=== PATIENT | female | born 1960 | race Asian ===

== ENCOUNTER → 2016-10-25 | Outpatient (CLI) | payer BC ==
--- NOTE | 2016-10-27 08:50 | MM ---
Reason for exam: screening (asymptomatic). Last mammogram was performed 1 year and 9 months ago. Physical Findings: A clinical breast exam by your physician is recommended on an annual basis and results should be correlated with mammographic findings. MG Screening Mammo w CAD Bilateral CC and MLO view(s) were taken. Prior study comparison: January 28, 2015, bilateral MG screening mammo w CAD. January 27, 2014, bilateral MG screening mammo w CAD. There are scattered fibroglandular densities. No significant changes when compared with prior studies. ASSESSMENT: Negative, BI-RAD 1 RECOMMENDATION: Routine screening mammogram of both breasts in 1 year.
== END ==
LOC: RADMAMWWP 16:36
PROVIDERS: ATTEND Internal Medicine
DX: Z12.31 Encounter for screening mammogram for malignant neoplasm of breast (principal)

== ENCOUNTER → 2018-04-04 | Outpatient (CLI) | payer BC ==
--- NOTE | 2018-04-05 12:00 | MM ---
Reason for exam: screening (asymptomatic). Last mammogram was performed 1 year and 5 months ago. History: Patient is postmenopausal. Physical Findings: A clinical breast exam by your physician is recommended on an annual basis and results should be correlated with mammographic findings. MG Screening Mammo w CAD Bilateral CC and MLO view(s) were taken. Prior study comparison: October 25, 2016, bilateral MG screening mammo w CAD. January 28, 2015, bilateral MG screening mammo w CAD. The breast tissue is heterogeneously dense. This may lower the sensitivity of mammography. There is no discrete abnormality. No significant changes when compared with prior studies. ASSESSMENT: Negative, BI-RAD 1 RECOMMENDATION: Routine screening mammogram of both breasts in 1 year.
== END | disposition home or self-care (01) ==
LOC: RADMAMWWP 09:15
PROVIDERS: ATTEND Internal Medicine
DX: Z12.31 Encounter for screening mammogram for malignant neoplasm of breast (principal)
CPT/HCPCS: 77067

== ENCOUNTER → 2018-06-13 | Outpatient (CLI) | payer BC ==
--- NOTE | 2018-06-13 15:51 | US ---
EXAMINATION TYPE: US thyroid st tissue head/neck DATE OF EXAM: 06/13/2018 COMPARISON: NONE CLINICAL HISTORY: R22.0 Localized swelling, mass and lump, head. Swelling, mass/palpable abnormality. Pt felt lump 2 weeks ago. GLAND SIZE: Right Lobe: 5.3 x 1.4 x 1.7 cm Overall Parenchyma: heterogenous Left Lobe: 6.6 x 2.5 x 3.2 cm Overall Parenchyma: heterogeneous Isthmus Thickness: 0.32 cm NODULES RIGHT: # of nodules measured on right: 2 1. 0.6 X 0.5 x 0.4 cm hypoechoic mixed nodule at the mid pole with well-defined margins. This nodu le is wider than tall and shows no intranodular vascularity. Prior size: no prior 2. 0.8 X 0.7 x 0.5 cm hypoechoic solid nodule at the lower pole with poorly defined margins. This n odule is wider than tall and shows intranodular vascularity. Prior size: no prior LEFT: # of nodules measured on left: 2 1. 4.2 X 3.7 x 3.2 cm hypoechoic cystic nodule with debris at the mid pole with well-defined margin s. This nodule is wider than tall and shows no intranodular vascularity. Prior size: no prior 2. 1.0 X 1.2 x 1.0 cm hypoechoic mixed nodule at the upper pole with well-defined margins. This nod ule is wider than tall and shows intranodular vascularity. Prior size: no prior ISTHMUS: # of nodules measured in the isthmus: 0 IMPRESSION: There is evidence of thyroidomegaly with the multiple bilateral nonspecific nodules as discussed abov e. Correlate clinically with thyroid function testing. The need to biopsy should be made on a clinica l basis.
== END | disposition home or self-care (01) ==
LOC: RADUSWWP 15:07
PROVIDERS: ATTEND Internal Medicine
DX: E04.2 Nontoxic multinodular goiter (principal)
CPT/HCPCS: 76536

== ENCOUNTER 2018-08-23 08:50 | Day surgery (SDC) | payer BC ==
[2018-08-23 09:14] VITALS: RESP 14; TEMP 97.5
[2018-08-23 10:58] VITALS: BP 136/88; PULSE 72
--- NOTE | 2018-08-23 11:51 | US ---
ULTRASOUND GUIDED FNA THYROID BIOPSY: CLINICAL HISTORY: Request for 2 thyroid nodules for FNA FINDINGS: The procedure was explained to the patient. The risks, complications, benefits and alternatives were discussed and any questions were answered. Informed consent was obtained. Patient was placed supin e on the ultrasound table and prepped and draped in the usual sterile fashion. Utilizing a 25 gauge needle, five passes were made into the requested thyroid nodules. Patient was stable throughout the procedure. Pathology is pending. All elements of maximal barrier technique were utilized. IMPRESSION: 1. Successful ultrasound guided FNA thyroid biopsy. Note is made that the nodules appear to be predo minantly fluid with very little soft tissue component. This will likely lower diagnostic yield.
== END 2018-08-23 10:48 | disposition home or self-care (01) ==
LOC: RADPROMAIN 08:50
PROVIDERS: ATTEND Otolaryngology
DX: E04.1 Nontoxic single thyroid nodule (principal)
CPT/HCPCS: 10005; 10006; 88173; 88305

== ENCOUNTER → 2019-02-27 | Outpatient (CLI) | payer BC ==
--- NOTE | 2019-02-28 07:28 | US ---
EXAMINATION TYPE: US thyroid st tissue head/neck DATE OF EXAM: 02/27/2019 COMPARISON: US 08/23/2018 and 06/13/2018 CLINICAL HISTORY: E04.1 thyroid nodule. F/U nodules GLAND SIZE: Right Lobe: 4.4 x 1.2 x 1.7 cm Overall Parenchyma: heterogenous Left Lobe: 5.3 x 2.0 x 2.3 cm Overall Parenchyma: heterogeneous Isthmus Thickness: 0.3 cm NODULES RIGHT: # of nodules measured on right: 2 1. 0.6 X 0.5 x 0.4 cm hypoechoic mixed nodule at the mid pole with well-defined margins; This nodu le is wider than tall and shows no intranodular vascularity. Prior size: 0.6 x 0.5 x 0.4 cm 2. 0.6 X 0.5 x 0.5 cm isoechoic solid nodule at the lower pole with poorly defined margins; This no dule is wider than tall and shows intranodular vascularity. Prior size: 0.8 x 0.7 x 0.5 cm LEFT: # of nodules measured on left: 3 1. 2.8 X 1.9 x 2.3 cm hypoechoic mixed nodule at the mid pole with well-defined margins; This nodu le is wider than tall and shows intranodular vascularity. Prior size: 4.2 x 3.7 x 3.2 cm 2. 0.9 X 0.5 x 0.8 cm hypoechoic mixed nodule at the upper pole with poorly defined margins; This n odule is wider than tall and shows intranodular vascularity. Prior size: 1.0 x 1.2 x 1.0 cm 3. 1.3 X 0.9 x 1.1 cm hypoechoic cystic nodule at the upper pole with well-defined margins; This no dule is wider than tall and shows no intranodular vascularity. Prior size: Not visualized on prior Bilateral neck scanned, no evidence of lymphadenopathy. Stable nodules bilaterally with new cystic no dule upper pole on left. IMPRESSION: 1. Bilateral thyroid nodules demonstrate no significant interval growth. The largest most complex nod ule on the left has decreased in size from the prior. This was previously biopsied on 08/23/2018. 2. Solitary new left thyroid nodule measuring 1.3 cm appears largely cystic, likely benign.
== END | disposition home or self-care (01) ==
LOC: RADUSWWP 16:19
PROVIDERS: ATTEND Otolaryngology
DX: E04.2 Nontoxic multinodular goiter (principal)
CPT/HCPCS: 76536

== ENCOUNTER → 2019-09-12 | Outpatient (CLI) | payer BC ==
--- NOTE | 2019-09-13 07:02 | US ---
EXAMINATION TYPE: US thyroid st tissue head/neck DATE OF EXAM: 09/12/2019 COMPARISON: 02/27/2019 CLINICAL HISTORY: E04.1 thyroid nodule. thyroid nodule GLAND SIZE: Right Lobe: 5.5 x 1.6 x 1.5 cm Overall Parenchyma: homogenous Left Lobe: 5.7 x 1.7 x 1.6 cm Overall Parenchyma: homogeneous Isthmus Thickness: cm NODULES RIGHT: # of nodules measured on right: 2 1. .7 X .4 x .5 cm mixed nodule at the mid pole with margins; . This nodule is wider than tall and shows no intranodular vascularity. Prior size: .6 x .5 x .4 cm 2. 1.0 x .4 x .7 cm hypoechoic solid nodule at the lower pole with well-defined margins; . This nodu le is wider than tall and shows intranodular vascularity. Prior size: .6 x .5 x .5cm LEFT: # of nodules measured on left: 1. 1.3 x 1.2 x 1.1cm cystic nodule at the lower pole with well-defined margins; . This nodule is wi felton than tall and shows no intranodular vascularity. Prior size: No previous 2. 1.1 x 1.6 x 1.0 cm cystic nodule at the upper pole with well-defined margins; . This nodule is w ider than tall and shows no intranodular vascularity. Prior size: .9 x .5 x .8 cm 3. .7 X .5 x .6 cm mixed nodule at the mid pole with margins; . This nodule is wider than tall and shows no intranodular vascularity. Prior size: .9 x .5 x .8 cm ISTHMUS: # of nodules measured in the isthmus: 0 Bilateral neck scanned, no evidence of lymphadenopathy. IMPRESSION: 1. Glandular enlargement. 2. Nonspecific thyroid nodularity as noted above.
== END | disposition home or self-care (01) ==
LOC: RADUSWWP 16:12
PROVIDERS: ATTEND Otolaryngology
DX: E04.9 Nontoxic goiter, unspecified (principal)
CPT/HCPCS: 76536

== ENCOUNTER → 2020-04-09 | Outpatient (CLI) | payer OTHER ==
--- NOTE | 2020-04-10 07:58 | US ---
EXAMINATION TYPE: US thyroid st tissue head/neck DATE OF EXAM: 04/09/2020 COMPARISON: US 2019 CLINICAL HISTORY: E04.1 THYROID NODULE. GLAND SIZE: Right Lobe: 5.0 x 1.4 x 1.3 cm Overall Parenchyma: homogenous Left Lobe: 4.9 x 1.3 x 1.6 cm Overall Parenchyma: homogeneous Isthmus Thickness: 0.2 cm NODULES RIGHT: # of nodules measured on right: multiple subcentimeter nodules with largest described below 1. 0.6 X 0.4 x 0.5 cm mid pole cystic or almost completely cystic, hypoechoic nodule, which is wide r than tall, with smooth margins, without echogenic foci. Prior size: 0.7 x 0.4 x 0.5 cm LEFT: # of nodules measured on left: 3 1. 1.6 X 1.0 x 1.3 cm mid pole cystic or almost completely cystic, hypoechoic nodule, which is wide r than tall, with smooth margins, without echogenic foci. Prior size: 1.3 x 1.2 x 1.1 cm 2. 1.2 X 1.0 x 0.9 cm inferior pole mixed cystic and solid, hypoechoic nodule, which is taller than wide, with smooth margins, without echogenic foci. Prior size: 1.1 x 1.6 x 1.0 cm 3. 1.1 X 0.6 x 0.9 cm medial superior pole solid or almost completely solid, isoechoic nodule, whic h is wider than tall, with ill-defined margins, without echogenic foci. Prior size: 0.7 x 0.5 x 0.6 cm ISTHMUS: # of nodules measured in the isthmus: 0 Bilateral neck scanned, no evidence of lymphadenopathy. IMPRESSION: 1. Moderate suspicion inferior pole left lobe thyroid nodule. Follow-up exam in one year is recommend ed. 2017 ACR TI-RADS LEVEL: TR-RADS 4 - Moderately Suspicious: Follow if > 1 cm, FNA if > 1.5 cm *Highest TI-RADS level nodule reported
== END | disposition home or self-care (01) ==
LOC: RADUSWWP 16:36
PROVIDERS: ATTEND Otolaryngology
DX: E04.1 Nontoxic single thyroid nodule (principal)
CPT/HCPCS: 76536

== ENCOUNTER → 2020-04-09 | Outpatient (CLI) | payer OTHER ==
--- NOTE | 2020-04-13 09:51 | MM ---
Reason for exam: screening (asymptomatic). Last mammogram was performed 2 years ago. History: Patient is postmenopausal. Physical Findings: A clinical breast exam by your physician is recommended on an annual basis and results should be correlated with mammographic findings. MG Screening Mammo w CAD Bilateral CC, MLO, and XCCL view(s) were taken. Prior study comparison: April 04, 2018, bilateral MG screening mammo w CAD. October 25, 2016, bilateral MG screening mammo w CAD. No significant changes when compared with prior studies. ASSESSMENT: Benign, BI-RAD 2 RECOMMENDATION: Routine screening mammogram of both breasts in 1 year.
== END | disposition home or self-care (01) ==
LOC: RADMAMWWP 16:32
PROVIDERS: ATTEND Internal Medicine
DX: Z12.31 Encounter for screening mammogram for malignant neoplasm of breast (principal)
CPT/HCPCS: 77067

== ENCOUNTER → 2020-08-13 | Outpatient (CLI) | payer OTHER ==
[2020-08-13 08:06] LABS: HCT 39.6 % (34.0-46.0); HGB 12.5 gm/dL (11.4-16.0); Hypochromasia Slight; MCH 21.1 pg (25.0-35.0); MCHC 31.7 g/dL (31.0-37.0); MCV 66.8 fL (80.0-100.0); Mean Platelet Volume 6.7; Microcytosis Marked; Platelet Count 191 k/uL (150-450); RBC 5.92 m/uL (3.80-5.40); RDW 14.9 % (11.5-15.5); WBC 7.1 k/uL (3.8-10.6)
[2020-08-13 08:19] LABS: Partial Thromboplastin Time 24.8 sec (22.0-30.0); Prothrombin Time 10.3 sec (9.0-12.0)
[2020-08-13 08:22] LABS: ALT 20 U/L (4-34); AST 26 U/L (14-36); African American GFR (CKD) >90 (>60 ml/min/1.73 sqM); Albumin 4.6 g/dL (3.5-5.0); Alkaline Phosphatase 103 U/L (38-126); Anion Gap 8 mmol/L; Blood Urea Nitrogen 11 mg/dL (7-17); Calcium 10.1 mg/dL (8.4-10.2); Carbon Dioxide 31 mmol/L (22-30); Chloride 105 mmol/L (98-107); Glucose 103 mg/dL (74-99); Non-African American GFR(CKD) >90 (>60 ml/min/1.73 sqM); Potassium 3.8 mmol/L (3.5-5.1); Sodium 144 mmol/L (137-145); Total Bilirubin 0.5 mg/dL (0.2-1.3); Total Protein 8.1 g/dL (6.3-8.2)
[2020-08-13 08:34] LABS: Appearance,Urine Clear (Clear); Bilirubin,Urine Negative (Negative); Blood,Urine Negative (Negative); Color,Urine Light Yellow; Glucose,Urine (UA) Negative (Negative); Ketones,Urine Negative (Negative); Leukocyte Esterase,Urine Negative (Negative); Nitrite,Urine Negative (Negative); Protein,Urine Negative (Negative); Specific Gravity,Urine 1.003 (1.001-1.035); Urobilinogen,Urine <2.0 mg/dL (<2.0)
== END | disposition home or self-care (01) ==
LOC: LABPAT 07:05
PROVIDERS: ATTEND Orthopaedic Surgery Sports Medicine
DX: Z01.812 Encounter for preprocedural laboratory examination (principal)
CPT/HCPCS: 36415; 80053; 81003; 85027; 85610; 85730; 87070; 93005

== ENCOUNTER 2020-09-03 07:44 | Day surgery (SDC) | payer OTHER ==
[2020-09-01 08:41] VITALS: BMI 30.2
[~2020-09-03 07:44] MED LIST: ACETAMINOPHEN TAB 500 MG TAB PO PRN; DEXAMETHASONE SOD PHOSPHATE 4 MG/ML 1 ML VIAL IV ONE; GABAPENTIN 300 MG CAP PO PRN; HYDROmorphone 0.5 MG/0.5 ML SYRINGE IVP PRN; MELOXICAM 7.5 MG TAB PO PRN; ONDANSETRON 4 MG/2 ML VIAL IVP ONE; ONDANSETRON 4 MG/2 ML VIAL IVP PRN; ROPIVACAINE/EPI/CLONIDINE/KET 50 ML SYRINGE MISCELLANE PRN; TRANEXAMIC ACID 1,000 MG in SODIUM CHLORIDE 0.9% 100 ML IVPB PRN
[2020-09-03] MEDS: LACTATED RINGERS 1,000 ML IV SCH ×3 (08:26→16:49)
[2020-09-03] MEDS ORDERED: LIDOCAINE 1% (10MG/ML) FOR IV START INTRADERMA ONE (08:28)
[2020-09-03] MEDS ORDERED: MIDAZOLAM 2 MG/2 ML VIAL IVP ONE (08:54)
[2020-09-03] MEDS ORDERED: MIDAZOLAM 2 MG/2 ML VIAL ONE (09:55)
[2020-09-03] MEDS ORDERED: ePHEDrine SULFATE/0.9% NACL/PF 50 MG/5 ML SYRINGE IV ONE (09:55)
[2020-09-03] MEDS ORDERED: fentaNYL (PF) 50 MCG/ML 2 ML AMP ONE (09:55)
[2020-09-03] MEDS ORDERED: PHENYLEPHRINE-0.9% NACL SYG 1,000 MCG/10 ML SYRINGE ONE (09:55)
[2020-09-03] MEDS ORDERED: SODIUM CHLORIDE 0.9% 100 ML BAG ONE (09:55)
[2020-09-03] MEDS ORDERED: PROPOFOL 10 MG/ML 20 ML VIAL IV ONE (09:55)
[2020-09-03] MEDS ORDERED: ROPIVACAINE 5 MG/ML 30 ML VIAL ONE (09:55)
[2020-09-03] MEDS ORDERED: TRANEXAMIC ACID 1,000 MG/10 ML VIAL ONE (09:55)
[2020-09-03] MEDS ORDERED: DEXAMETHASONE SOD PHOSPHATE 4 MG/ML 1 ML VIAL ONE (09:55)
[2020-09-03] MEDS ORDERED: LIDOCAINE 1% INJ 10MG/ML (20 ML MDV) ONE (09:55)
[2020-09-03] MEDS ORDERED: ceFAZolin 3,000 MG in SODIUM CHLORIDE 0.9% IRRIGATIO 3,000 ML IRRIGATION ONE (10:29)
[2020-09-03] MEDS ORDERED: ROPIVACAINE 0.2%-NS ON-Q PUMP 1,090 MG, EMPTY PAIN BALL 1 EACH MISCELLANE PRN (12:21)
--- NOTE | 2020-09-03 12:28 | XR ---
EXAMINATION TYPE: XR knee limited RT DATE OF EXAM: 09/03/2020 CLINICAL HISTORY: Right knee pain and arthritis status post total knee replacement. TECHNIQUE: Portable AP and crosstable lateral views of the right knee are obtained immediately posto peratively. COMPARISON: None FINDINGS: Metallic hardware from total right knee arthroplasty is seen and appears satisfactory in a lignment and position. There is evidence of recent surgery with diffuse subcutaneous gas , vertical skin denny, and percutaneous suprapatellar surgical drain noted. IMPRESSION: METALLIC HARDWARE FROM TOTAL right KNEE ARTHROPLASTY IS SATISFACTORY IN ALIGNMENT.
[2020-09-03] MEDS ORDERED: ONDANSETRON 4 MG/2 ML VIAL IVP PRN (12:41)
[2020-09-03] MEDS ORDERED: HYDROcodone/APAP 10-325MG 1 EACH TAB PO PRN (12:41)
[2020-09-03] MEDS ORDERED: hydrOXYzine pamoate 25 MG CAP PO PRN (12:41)
[2020-09-03] MEDS ORDERED: NA PHOS,M-B/NA PHOS,DI-BA 133 ML ENEMA RECTAL PRN (12:41)
[2020-09-03] MEDS ORDERED: HYDROmorphone 0.2 MG/1 ML SYRINGE IVP PRN (12:41)
[2020-09-03] MEDS ORDERED: NALOXONE 0.4 MG/ML 1 ML VIAL IV PRN (12:41)
[2020-09-03] MEDS ORDERED: TEMAZEPAM 15 MG CAP PO PRN (12:41)
[2020-09-03] MEDS ORDERED: MAGNESIUM HYDROXIDE 2,400 MG/10 ML CUP PO PRN (12:41)
[2020-09-03] MEDS ORDERED: HYDROmorphone 0.5 MG/0.5 ML SYRINGE IVP PRN (12:41)
[2020-09-03] MEDS ORDERED: HYDROcodone/APAP 5-325MG 1 EACH TAB PO PRN (12:41)
[2020-09-03] MEDS ORDERED: HYDROmorphone 1 MG/ML 1 ML SYRINGE IVP PRN (12:41)
[2020-09-03] MEDS ORDERED: bisacodyL 10 MG SUPP RECTAL PRN (12:41)
[2020-09-03] MEDS ORDERED: diazePAM 5 MG TAB PO PRN (12:41)
[2020-09-03] MEDS ORDERED: traMADol 50 MG TAB PO PRN (12:41)
[2020-09-03] MEDS ORDERED: SODIUM CHLORIDE 0.9% 1,000 ML IV ONE (14:29)
--- NOTE | 2020-09-03 17:37 | P.CONS ---
History of Present Illness - Reason for Consult Consult date: 09/03/20 - History of Present Illness Tabby Egan, is a 60-year-old female patient of Dr. Coto who was admitted to [facility] by Dr. Adi Mcginnis and underwent right total knee arthroplasty on 09/03/2020 due to advanced osteoarthritis of the right knee that failed conservative management. Patient was admitted to surgical floor post operatively. Medical consultation was requested for management while [facility]. Patient has a known history of hypertension, history of osteoarthritis, history of hyperlipidemia and history of nontoxic thyroid nodule. On review of systems Patient was seen and examined on the medical floor, he is alert and oriented x 3 in no distress, he denies any complaints there is no fever or chills no headache or dizziness no chest pain no shortness of breath no palpitation no cough no nausea or vomiting no abdominal pain no diarrhea no blood in the stools no burning with urination no frequency or urgency and no hematuria, there is no weakness or numbness in any of the extremities no change in vision speech or gait. Past Medical History Past Medical History: Hypertension, Osteoarthritis (OA), Thyroid Disorder Additional Past Medical History / Comment(s): tendonitis left wrist History of Any Multi-Drug Resistant Organisms: None Reported Additional Past Surgical History / Comment(s): lithotripsy, colonoscopy Past Anesthesia/Blood Transfusion Reactions: No Reported Reaction Smoking Status: Never smoker - Past Family History Sister(s) Family Medical History: Cancer Additional Family Medical History / Comment(s): Pancreatic Cancer Medications and Allergies Home Medications Medication Instructions Recorded Confirmed Type amLODIPine BESYLATE/BENAZEPRIL 1 cap PO HS 09/01/20 09/03/20 History [Lotrel 5-10 MG] Allergies Allergy/AdvReac Type Severity Reaction Status Date / Time No Known Allergies Allergy Verified 09/03/20 08:06 Physical Exam Vitals: Vital Signs Temp Pulse Resp BP Pulse Ox 09/03/20 14:00 74 16 125/78 97 09/03/20 13:30 78 16 124/76 96 09/03/20 13:00 71 16 125/79 97 09/03/20 12:30 73 16 121/75 97 09/03/20 12:15 78 16 121/75 97 09/03/20 12:00 72 16 117/63 100 09/03/20 11:48 98.5 F 78 18 117/68 100 09/03/20 09:12 77 16 119/77 99 09/03/20 08:14 98.3 F 94 16 168/93 96 Intake and Output 09/02/20 09/03/20 09/03/20 22:59 06:59 14:59 Intake Total 751 Output Total 100 Balance 651 Intake: IV 751 Output: Estimated Blood Loss 100 Other: Weight 74.7 kg In general patient is alert and oriented x 3 in no distress HEENT head normocephalic and atraumatic Neck is supple no JVD no goiter no lymphadenopathy no carotid bruit Chest examination is clear to auscultation no crackles no wheezing Cardiac exam reveals regular heart sounds S1 and S2 no gallops no murmurs Abdomen is soft nontender no organomegaly with normal bowel sounds Extremity exam reveals no edema no cyanosis or clubbing Neurological examination reveals no gross focal deficits Assessment and Plan Plan: Advanced osteoarthritis of the right knee, status post right total knee arthroplasty today Underlying history of hypertension Underlying history of hyperlipidemia For DVT prophylaxis patient was started on oral aspirin 81 mg twice daily per orthopedic protocol For pain management patient is maintained on IV hydromorphone Home medications reviewed and reordered Will check labs and follow in a.m. Possible discharge to home tomorrow
--- NOTE | 2020-09-03 18:16 | P.ANPRN ---
Procedure Note - Anesthesia - Nerve Block Performed Right Adductor Canal Infusion Time Out Performed: Yes Date of Procedure: 09/03/20 Procedure Start Time: 08:53 Procedure Stop Time: 09:03 Location of Patient: PreOp Indication: Acute Post-Operative Pain, Requested by Surgeon Sedation Type: Sedate with meaningful contact maintained Preparation: Sterile Prep, Sterile Dressing Position: Supine Catheter: Indwelling Needle Types: Pajunk Needle Gauge: 21 Ultrasound used to visualize needle placement: Yes Ultrasound used to observe medication spread: Yes Blood Aspirated: No Pain Paresthesia on Injection Noted: No Resistance on Injection: Normal Image Stored and Saved: Yes Events: Uneventful and Well Tolerated (ropi .5% 20cc)
--- NOTE | 2020-09-03 18:18 | P.ANPRN ---
Procedure Note - Anesthesia - Nerve Block Performed Right Yousifck Single Time Out Performed: Yes Date of Procedure: 09/03/20 Procedure Start Time: :04 Procedure Stop Time: :08 Location of Patient: PreOp Indication: Acute Post-Operative Pain, Requested by Surgeon Sedation Type: Sedate with meaningful contact maintained Preparation: Sterile Prep Position: Supine Needle Types: Pajunk Needle Gauge: 21 Ultrasound used to visualize needle placement: Yes Ultrasound used to observe medication spread: Yes Resistance on Injection: Normal Image Stored and Saved: Yes Events: Uneventful and Well Tolerated (ropi .5% 20cc plus dexamethasone 4mg)
--- NOTE | 2020-09-03 19:40 | OP ---
OPERATIVE REPORT DATE OF PROCEDURE: 09/03/2020 SURGEON: Adi Mcginnis MD. HOT WALKER: Toby Mulligan PA-C. PREOP DIAGNOSIS: Right knee osteoarthrosis. POSTOPERATIVE DIAGNOSIS: Same. OPERATION: Right total knee arthroplasty. ANESTHESIA: Spinal sedation. ESTIMATED BLOOD LOSS: 100 mL. TOURNIQUET: Tourniquet time was 49 minutes at 250 mmHg. COMPLICATIONS: None apparent. DRAINS: None. DISPOSITION: Postanesthesia care unit. INDICATIONS: Tabby is a very pleasant 60-year-old female with longstanding right knee pain. History and physical examination consistent with advanced right knee osteoarthrosis. She has been through significant operative management at this point. Further treatment options were discussed and she decided to go forward with the right total knee arthroplasty. The risks of procedure were discussed with her in detail. These risks include, but are not limited to, risk of infection, nerve damage, bleeding, pain, and a small risk of deep vein thrombosis, which could lead to fatal pulmonary embolism. There is also risk of loosening of the implant, which could require revision operation. The patient understands these risks. All of her questions were answered to her satisfaction. Appropriate informed consent was obtained. DESCRIPTION OF PROCEDURE: The patient was identified in the preoperative holding area. Surgical sites marked by both the patient and myself. She was given 2 grams of Ancef IV for prophylactic purposes. She was then transferred to the operative suite. She was placed supine on the operative table. Spinal anesthetic was then administered and dosed per anesthesia without apparent complication. Examination under anesthesia was then performed. The patient was the patient was 2-3 degrees shy of full extension. She had 95 degrees of flexion. The medial collateral ligament, lateral collateral ligament, posterior cruciate ligaments were stable. A tourniquet was then placed high on the right upper thigh, well-padded, in preparation for surgery. The patient's right lower extremity was then prepped and draped in usual sterile fashion. Standard surgical pause undertaken to ensure that we were operating the correct site and that appropriate preoperative antibiotics had been given. All staff were in agreement we proceeded. The outlines of the patella marked with surgical pen. A planned 12 cm vertical incision was centered over the patella, was marked with surgical pen of the leg, then exsanguinated with an Esmarch dressing. The knee was then flexed and the tourniquet was inflated to 250 mmHg. The total tourniquet time for the procedure was 49 minutes. Incision was then made with a 10 blade scalpel. Extensive dissection was carried down sharply of the overlying fascia. Great care was taken to minimize the skin flaps. The knee was then exposed using a standard medial parapatellar approach. A small cuff of quadriceps tendon was then left for suturing. She was in a bit of varus preoperatively. A standard medial release was then made. Superficial medial collateral ligament was dissected off the bone around the posterior aspect of the proximal tibia. The medial meniscus was then excised as well. The lateral meniscus was also released anteriorly. The leg was then externally rotated. The patella was everted. The knee was flexed. The retractors were then placed to protect the collateral ligaments. I then proceeded to remove the infrapatellar fat pad. This was excised sharply tangentially with fibers of the patellar tendon. I then proceeded to remove the peripheral osteophytes. This is done with a rongeur. I then proceeded with the distal femoral resection. She did have near full extension. The planned 9 mm resection was then done. The femoral canal was then entered in the midline of the femur, approximately 10 mm anterior to the origin of the posterior cruciate ligament. The ángela was then advanced down the center of the femur and placed intramedullary. Based on the preoperative radiographs, the angle between the anatomic and mechanical axis of the femur was approximately 45 degrees. The valgus angle of the distal femoral cutting guide was then set at 4 degrees for the right knee. The distal femoral cutting guide was then advanced over the inserted intramedullary ángela. This was seated firmly against the femur. I then, as mentioned, planned to take 9 mm off the distal femur. The cutting blocks then secured onto the femur with pins. The jig was then removed. The distal femoral cut was made through the slot of the block. The pins then removed. The distal femoral cutting blocks removed. The accuracy of the distal femoral cuts were checked with 2 flat bars. I then proceed with femoral sizing. The posterior referencing sizing guide was held firmly against the resected surface of the femur. Posterior condyles were resting on the posterior plane of the guide. The sizing guide was then placed on the anterior femur. The size was measured with a size 5. I then assessed for femoral rotation. Plan was for 3 degrees external rotation. Three degrees external rotation was placed onto the jig. These holes were then marked. I then confirmed the rotation by 3 separate methods. This was done using epicondylar axis, as well as Whitesides line and posterior referencing. It was deemed that the external rotation was proper. I then went forward with placing the femoral cutting block. This was placed over the previously placed pin holes. The Pancho wing was then placed on the anterior slots to ensure that we would not notch the anterior femur with the anterior femoral cut. I then proceeded with the anterior femoral cut. This was flush with the anterior cortex of the femur. The posterior cuts were made then made followed by the anterior chamfer cut, then the posterior chamfer cut. The cutting block was then removed. Throughout the resection, the collateral ligaments were protected with retractors. I then placed a trial size 5 femur. It fit very nice medial-lateral and fit flush with the distal end of the femur. The drill holes were then made. I then proceed with the tibial cut. I planned for cruciate retaining knee. The guide was placed and set for varus valgus and for slope. The height was set for approximate 2 mm resection from the medial tibial plateau, which was the lower side. I was happy with the alignment and amount of resection. The cutting block was then pinned to the proximal tibia. The alignment ángela was removed. The proximal tibia was resected with the reciprocating saw. Again, this was done with retractors, protecting the collateral ligaments, as well as the posterior cruciate ligament. I then proceeded to evaluate the flexion and extension gaps. A 10 mm block was then placed. The flexion and extension gaps were equal. I then proceeded with resection of posterior osteophytes. She had very minimal posterior osteophytes. This is done using a curved osteotome. This resected the posterior osteophytes and posterior capsule stripping was done off the posterior aspect of the femur at this time. The osteophytes were then removed. I then proceeded to resect the patella. The thickness of patella was measured using the caliper. The thickness was 22 mm. The thickness of the anticipated patellar dome was taken into account. Resection was then performed and confirmed to be equal in 4 quadrants using a caliper. Approximately 14 mm of bone remained after resection. A 26 x 8 standard patellar trial was then placed. The holes were drilled. The trial was then placed. I then proceeded with sizing tibial plate. A size C tibial plate fit very nicely. I then placed the trial femur, the tibial tray and the patellar button. A 10 mm trial tibial insert was also placed. The components fit very nicely. She had full extension and flexion. The extension and flexion gaps were equal and stable to varus and valgus stress. The patella tracked appropriately. The tibial tray rotation was marked with a Bovie. This was externally rotated properly. I then proceeded with tibial preparation. First drilled the femoral holes, removed femoral component. Tibial tray was then set for proper external rotation, as well as mediolateral placement onto the tibia. It was then pinned into place. I then proceeded with punching the keel. I then decided to proceed with cementing all her components. The knee was thoroughly irrigated with sterile saline solution via pulse lavage. The lateral geniculate artery was identified and cauterized. All blood was removed from the bone of the tibia, femur and patella with pulse lavage. I then proceed with cementing. Two packs of antibiotic bone cement prepared on the back table by the surgical garment inspector. I then proceed with cementing the tibia first. The cement was impacted in the keel, as well as deeply seated into the bone. A second coat of cement was then placed. The tibia was then impacted into place. Excess cement was removed with Jamie's and Joker's. I then proceeded with cementing the femoral component. Trial components also cemented using standard technique. Excess cement was removed. A 10 mm trial insert was then placed into the knee. It was brought into full extension with a constant axial load placed until the cement had hardened. The patellar component was then cemented. This was held from the compressive device until the cement had dried. When the cement had dried, the knee was set in ( ) extension. All excess cement removed from around the prosthesis. I then trialed the knee with a 10 mm insert. Flexion extension gaps were appropriate. I then trialed with a 12 mm insert. The flexion and extension gaps felt much better. The knee was stable. It came in full extension. I decided to go for the 12 mm medial congruent cross-linked cruciate- retaining tibial insert. Polyethylene was then placed on the tibial tray and locked into place. The knee was then reduced. The knee was again further irrigated with sterile saline solution with antibiotic added. The tourniquet was then deflated. Total tourniquet time of the procedure was 49 minutes at 250 mmHg. The final components were Ellen Persona size 5 cruciate-retaining femoral component, size C tibial tray, a 12 mm medial congruent cruciate-retaining polyethylene insert, and a 26 x 8 mm patella. I then proceeded with closure. Again, the knee was thoroughly irrigated. The quadriceps tendon and the retinaculum were reapproximated with #2 Ethibond suture. The extensor mechanism was then closed with a running Quill suture. Subcutaneous tissues were closed with 2-0 Vicryl interrupted suture. The skin was closed with a running 3-0 Quill suture. Dermabond was applied to the incision. Sterile compressive dressings were applied. All sponge and needle counts were deemed correct prior to closure. The patient tolerated the procedure without apparent complication. She was transferred recovery room in stable condition. MMODL / IJN: [id number] /
[2020-09-03] MEDS ORDERED: SENNOSIDES-DOCUSATE SODIUM 1 EACH TAB PO SCH (21:00)
[2020-09-03] MEDS: ASPIRIN 81 MG PO SCH (21:24)
[2020-09-04] MEDS: LACTATED RINGERS 1,000 ML IV SCH (03:27)
[2020-09-04 08:37] LABS: ALT 17 U/L (4-34); AST 27 U/L (14-36); African American GFR (CKD) >90 (>60 ml/min/1.73 sqM); Albumin 3.7 g/dL (3.5-5.0); Albumin/Globulin Ratio 1.2; Alkaline Phosphatase 94 U/L (38-126); Anion Gap 6 mmol/L; Blood Urea Nitrogen 13 mg/dL (7-17); Calcium 9.3 mg/dL (8.4-10.2); Carbon Dioxide 30 mmol/L (22-30); Chloride 105 mmol/L (98-107); Globulin 3.1 g/dL; Glucose 98 mg/dL (74-99); Non-African American GFR(CKD) >90 (>60 ml/min/1.73 sqM); Potassium 4.2 mmol/L (3.5-5.1); Sodium 141 mmol/L (137-145); Total Bilirubin 0.4 mg/dL (0.2-1.3); Total Protein 6.8 g/dL (6.3-8.2)
[2020-09-04] MEDS: ASPIRIN 81 MG PO SCH (08:59)
[2020-09-04] MEDS: ACETAMINOPHEN TAB 325 MG TAB PO PRN ×2 (09:03→12:06)
--- NOTE | 2020-09-04 09:16 | P.PN ---
Progress Note - Text 09/04/20 643am 60-year-old female status post total knee replacement by Dr. Mcginnis. Patient has an On-Q pump for postop pain control with the solution running at 8 mL an hour with a VAS of 5. Pain is predominantly located posteriorly. Which was not covered by the On-Q pump . Dressing clean dry and intact. Plan to continue On- Q pump infusion
--- NOTE | 2020-09-04 10:02 | P.PN ---
Subjective Progress Note Date: 09/04/20 Tabby Egan, is a 60-year-old female patient of Dr. Coto who was admitted to [facility] by Dr. Adi Mcginnis and underwent right total knee arthroplasty on 09/03/2020 due to advanced osteoarthritis of the right knee that failed conservative management. Patient was admitted to surgical floor post operatively. Medical consultation was requested for management while hospitalized. Patient has a known history of hypertension, history of osteoarthritis, history of hyperlipidemia and history of nontoxic thyroid nodule. On review of systems Patient was seen and examined on the medical floor, he is alert and oriented x 3 in no distress, he denies any complaints there is no fever or chills no headache or dizziness no chest pain no shortness of breath no palpitation no cough no nausea or vomiting no abdominal pain no diarrhea no blood in the stools no burning with urination no frequency or urgency and no hematuria, there is no weakness or numbness in any of the extremities no change in vision speech or gait. On 09/04/2020 patient's alert and oriented 3. Patient is currently postop day 1. Patient reports mild discomfort to right knee site. Incision site is clean dry and intact with no signs of erythema or drainage. Patient reports she has been up ambulating. Urinating without issue. Patient denies chest pain or shortness of breath. Patient denies nausea vomiting or diarrhea. Anticipate possible discharge today per orthopedic services Objective - Vital Signs Vital signs: Vital Signs Temp 98.4 F 09/04/20 07:16 Pulse 65 09/04/20 07:16 Resp 17 09/04/20 07:16 BP 142/81 09/04/20 07:16 Pulse Ox 98 09/04/20 07:16 Intake & Output 09/03/20 09/04/20 09/04/20 18:59 06:59 18:59 Intake Total 751 Output Total 100 Balance 651 Weight 74.7 kg Intake: IV 751 Output: Estimated Blood Loss 100 Other: # Voids 1 1 - Exam In general patient is alert and oriented x 3 in no distress HEENT head normocephalic and atraumatic Neck is supple no JVD no goiter no lymphadenopathy no carotid bruit Chest examination is clear to auscultation no crackles no wheezing Cardiac exam reveals regular heart sounds S1 and S2 no gallops no murmurs Abdomen is soft nontender no organomegaly with normal bowel sounds Extremity exam reveals no edema no cyanosis or clubbing Neurological examination reveals no gross focal deficits - Labs CBC & Chem 7: 09/04/20 07:09 Assessment and Plan Plan: Advanced osteoarthritis of the right knee, status post right total knee arthroplasty today Underlying history of hypertension Underlying history of hyperlipidemia For DVT prophylaxis patient was started on oral aspirin 81 mg twice daily per orthopedic protocol For pain management patient is maintained on IV hydromorphone Home medications reviewed and reordered Will check labs and follow in a.m. Possible discharge to home today
--- NOTE | 2020-09-04 11:22 | P.DS ---
Providers Expected date of discharge: 09/04/20 Attending physician: Adi Mcginnis Consults: 09/03/20 12:41 Consult Physician Routine Consulting Provider: Kristin Lane Consult Reason/Comments: post op medical management Do you want consulting provider notified?: Yes Primary care physician: Con Dong Balboa - Discharge Diagnosis(es) (1) Total knee replacement status Patient was admitted to the OR on 09/04/20 to undergo a right total knee arthroplasty. She had failed conservative measures as an outpatient and desired to proceed with elective surgery after given informed consent. She underwent the above procedure which she tolerated well without complication. Postoperative hospital course has remained without complication. On day of discharge she is afebrile, vital signs stable, labs within acceptable ranges, tolerating by mouth meds and diet, voiding without difficulty, positive flatus, denies abdominal pain or calf pain, pain is controlled on oral pain medication and has no new complaints. Wound is benign, neurovascular status is intact, calf is soft and nontender, abdomen soft and nontender. Review of systems is negative for numbness, tingling, fever, chills, chest pain, shortness of breath, nausea, vomiting, dizziness, headaches, slurred speech or other. Current Visit: Yes Status: Acute Priority: Medium Procedures: Right TKA Patient Condition at Discharge: Good Plan - Discharge Summary Discharge Rx Participant: Yes New Discharge Prescriptions: New Aspirin [Adult Low Dose Aspirin EC] 81 mg PO BID #60 tablet. HYDROcodone/APAP 7.5-325MG [[place] 7.5-325] 1 - 2 each PO Q6HR PRN #42 tab PRN Reason: Pain Docusate [Colace] 100 mg PO BID #60 capsule No Action amLODIPine BESYLATE/BENAZEPRIL [Lotrel 5-10 MG] 1 cap PO HS Discharge Medication List amLODIPine BESYLATE/BENAZEPRIL [Lotrel 5-10 MG] 1 cap PO HS 09/01/20 [History] Aspirin [Adult Low Dose Aspirin EC] 81 mg PO BID #60 tablet. 09/04/20 [Rx] Docusate [Colace] 100 mg PO BID #60 capsule 09/04/20 [Rx] HYDROcodone/APAP 7.5-325MG [[place] 7.5-325] 1 - 2 each PO Q6HR PRN #42 tab 09/04/20 [Rx] Follow up Appointment(s)/Referral(s): [facility], [NON-STAFF] - Adi Mcginnis MD [STAFF PHYSICIAN] - 10 Days Activity/Diet/Wound Care/Special Instructions: Keep wound clean and dry Take meds as directed Follow-up with Dr. Mcginnis in office Weight bear as tolerated May shower in 3 days if no bleeding Discharge Disposition: HOME WITH HOME HEALTH SERVICES
[2020-09-04] MEDS ORDERED: MULTIVITAMINS, THERA 1 EACH TAB PO SCH (12:00)
[2020-09-04 12:11] LABS: Basophils # (A) 0.04 X 10*3/uL (0.00-0.10); Basophils % (A) 0.3 %; Eosinophils # (A) 0.01 X 10*3/uL (0.04-0.35); Eosinophils % (A) 0.1 %; HCT 35.6 % (37.2-46.3); HGB 10.9 g/dL (12.0-15.0); Lymphocytes # (A) 1.32 X 10*3/uL (0.90-5.00); Lymphocytes % (A) 10.4 %; MCH 20.8 pg (27.0-32.0); MCHC 30.6 g/dL (32.0-37.0); MCV 68.1 fL (80.0-97.0); Mean Platelet Volume 10.9 fL (9.5-12.2); Microcytosis (M) 2+; Monocytes # (A) 1.08 X 10*3/uL (0.20-1.00); Monocytes % (A) 8.5 %; Neutrophils # (A) 10.26 X 10*3/uL (1.80-7.70); Neutrophils % (A) 80.4 %; Platelet Count 182 X 10*3/uL (140-440); RBC 5.23 X 10*6/uL (4.10-5.20); RDW 15.8 % (11.5-14.5); WBC 12.75 X 10*3/uL (4.50-10.00)
[2020-09-04 14:17] VITALS: BP 130/72; PULSE 71; RESP 18; TEMP 98
== END 2020-09-04 15:30 | disposition home health service (06) ==
LOC: OR 07:44 → 4SSUR 14:05 → OR 09-04 15:30
PROVIDERS: ATTEND Orthopaedic Surgery Sports Medicine
DX: M17.11 Unilateral primary osteoarthritis, right knee (principal); I10 Essential (primary) hypertension; E07.9 Disorder of thyroid, unspecified; Z90.49 Acquired absence of other specified parts of digestive tract; Z80.0 Family history of malignant neoplasm of digestive organs; Z79.899 Other long term (current) drug therapy; Z96.89 Presence of other specified functional implants; E04.1 Nontoxic single thyroid nodule
CPT/HCPCS: 97162; 64999; 64448; 76942; 80053; 85025; 88300; 73560; 27447; C1776; C1713; J2250; J1100; J0690 ×3; J2405; J2001; J3010; J2795 ×2; J2370; J2704; J1170

== ENCOUNTER → 2020-10-21 | Outpatient (CLI) | payer OTHER ==
--- NOTE | 2020-10-22 07:36 | US ---
EXAMINATION TYPE: US thyroid st tissue head/neck DATE OF EXAM: 10/21/2020 COMPARISON: 04/09/2020 CLINICAL HISTORY: 60-year-old female E04.1 Thyroid nodule. History of thyroid FNA TECHNIQUE: Multiple sonographic images of the thyroid gland are obtained. FINDINGS: GLAND SIZE: Right Lobe: 4.4 x 1.3 x 1.4 cm Overall Parenchyma: homogenous Left Lobe: 4.8 x 1.3 x 1.7 cm Overall Parenchyma: homogeneous Isthmus Thickness: 0.2 cm NODULES RIGHT: # of nodules measured on right: multiple subcentimeter nodules with largest described below 1. 0.6 X 0.5 x 0.5 cm, mid medial, cystic or almost completely cystic, nodule, which is wider than tall, with smooth margins, without echogenic foci. Prior size: 0.6 x 0.4 x 0.5 cm LEFT: # of nodules measured on left: 3 1. 1.8 X 1.1 x 1.5 cm, mid , cystic or almost completely cystic, nodule, which is wider than tall, with smooth margins, without echogenic foci. Prior size: 1.6 x 1.0 x 1.3 cm 2. 1.2 X 1.1 x 0.9 cm, lower mid, solid or almost completely solid, hypoechoic TR5 nodule, which i s wider than tall, with smooth margins, with echogenic foci. Prior size: 1.2 x 1.0 x 0.9 cm 3. 1.1 X 0.7 x 0.8 cm, lower mid, solid or almost completely solid, isoechoic TR3 nodule, which is wider than tall, with ill-defined margins, without echogenic foci. Prior size: 1.1 x 0.6 x 0.9 cm ISTHMUS: # of nodules measured in the isthmus: 0 Bilateral neck scanned, no evidence of lymphadenopathy. IMPRESSION: 1. Probable multinodular goiter. 2. The solid 1.2 cm TR5 nodule in the left lower pole is stable from 04/09/2020. FNA if not previously performed. Otherwise, continued follow-up recommended. 3. Additional 1.1 cm solid TR3 nodule also in the left lower pole is stable as well.
== END | disposition home or self-care (01) ==
LOC: RADUSWWP 16:50
PROVIDERS: ATTEND Otolaryngology
DX: E04.2 Nontoxic multinodular goiter (principal)
CPT/HCPCS: 76536

== ENCOUNTER → 2021-04-13 | Outpatient (CLI) | payer OTHER ==
--- NOTE | 2021-04-14 07:15 | US ---
EXAMINATION TYPE: US thyroid st tissue head/neck DATE OF EXAM: 04/13/2021 COMPARISON: 10/21/20 Thyroid CLINICAL HISTORY: E04.1 Thyroid nodule. Hx thyroid nodule; pt had thyroid bx in 2019 GLAND SIZE: Right Lobe: 4.6 x 1.0 x 1.7 cm Overall Parenchyma: homogenous Left Lobe: 5.1 x 1.8 x 2.0 cm Overall Parenchyma: homogeneous Isthmus Thickness: 0.20 cm NODULES RIGHT: # of nodules measured on right: 1 1. 0.7 X 0.5 x 0.5 cm, mid mid, cystic or almost completely cystic, anechoic nodule, which is wider than tall, with smooth margins, without echogenic foci. Prior size: 0.6 x 0.5 x 0.5 cm LEFT: # of nodules measured on left: 3 1. 2.2 X 1.6 x 1.7 cm, upper mid, cystic or almost completely cystic, anechoic nodule, which is wid er than tall, with smooth margins, without echogenic foci. Prior size: 1.8 x 1.1 x 1.5 cm 2. 1.0 X 1.1 x 0.9 cm, lower mid, solid or almost completely solid, hypoechoic nodule, which is ta ller than wide, with ill-defined margins, without echogenic foci. Prior size: 1.2 x 1.1 x 0.9 cm 3. 1.1 X 0.6 x 1.1 cm, lower lateral, solid or almost completely solid, isoechoic nodule, which is wider than tall, with smooth margins, without echogenic foci. Prior size: 1.1 x 0.7 x 0.8 cm ISTHMUS: # of nodules measured in the isthmus: 0 Bilateral neck scanned, no evidence of lymphadenopathy. Subcentimeter nodules noted bilaterally. Nodules measured bilaterally and compared to previous exam. IMPRESSION: Nonspecific stable thyroid nodularity
== END | disposition home or self-care (01) ==
LOC: RADUSWWP 16:51
PROVIDERS: ATTEND Otolaryngology
DX: E04.1 Nontoxic single thyroid nodule (principal)
CPT/HCPCS: 76536

== ENCOUNTER → 2021-06-23 | Outpatient (CLI) | payer OTHER ==
--- NOTE | 2021-06-24 14:29 | MM ---
Reason for exam: screening (asymptomatic). Last mammogram was performed 1 year and 2 months ago. History: Patient is postmenopausal. Physical Findings: A clinical breast exam by your physician is recommended on an annual basis and results should be correlated with mammographic findings. MG Screening Mammo w CAD Bilateral CC and MLO view(s) were taken. Prior study comparison: April 09, 2020, bilateral MG screening mammo w CAD. April 04, 2018, bilateral MG screening mammo w CAD. There are scattered fibroglandular densities. Finding: There is a 5 mm equal density (isodense) mass in the upper outer quadrant of the right breast. ASSESSMENT: Incomplete: need additional imaging evaluation, BI-RAD 0 RECOMMENDATION: Special view mammogram of the right breast. If lesion persists on supplemental views, image directed ultrasound is recommended. [facility] will attempt to contact patient to return for supplemental views and ultrasound if indicated.
== END | disposition home or self-care (01) ==
LOC: RADMAMWWP 07:18
PROVIDERS: ATTEND Internal Medicine
DX: Z12.31 Encounter for screening mammogram for malignant neoplasm of breast (principal); Z78.0 Asymptomatic menopausal state
CPT/HCPCS: 77067

== ENCOUNTER → 2022-02-16 | Outpatient (CLI) | payer OTHER ==
--- NOTE | 2022-02-16 07:58 | MM ---
Reason for Exam: Follow-up at short interval from prior study. Last screening mammogram was performed 8 month(s) ago. Patient History: Menarche at age 17. First Full-Term at age 25. Postmenopausal. Patient has history of breast feeding. Risk Values: Maria Luisa 5 year model risk: 1.1%. NCI Lifetime model risk: 6.2%. Prior Study Comparison: 10/25/2016 Bilateral Screening Mammogram, [facility]. 04/04/2018 Bilateral Screening Mammogram, [facility]. 04/09/2020 Bilateral Screening Mammogram, [facility]. 06/23/2021 Bilateral Screening Mammogram, [facility]. 07/01/2021 Right MG work up mamm w CAD RT, [facility]. Tissue Density: Right: There are scattered fibroglandular densities. Findings: Analyzed By CAD. Pattern appears stable. No persistent suspicious nodular density is evident. No spiculated or lobular masses, clusters of microcalcifications, architectural distortion, or other secondary signs of malignancy are radiographically apparent. Overall Assessment: Benign, BI-RAD 2 Management: Screening Mammogram of both breasts in 6 months. A clinical breast exam by your physician is recommended on an annual basis and results should be correlated with mammographic findings. This exam should not preclude additional follow-up of suspicious palpable abnormalities. Results were given to the patient verbally at the time of exam. Electronically signed and approved by: Roscoe Myers D.O. Radiologis
== END | disposition home or self-care (01) ==
LOC: RADMAMWWP 06:58
PROVIDERS: ATTEND Internal Medicine
DX: R92.8 Other abnormal and inconclusive findings on diagnostic imaging of breast (principal); Z78.0 Asymptomatic menopausal state
CPT/HCPCS: 77065

== ENCOUNTER → 2022-05-25 | Outpatient (CLI) | payer OTHER ==
--- NOTE | 2022-05-25 08:21 | US ---
EXAMINATION TYPE: US thyroid st tissue head/neck DATE OF EXAM: 05/25/2022 COMPARISON: 04/13/2021 and prior CLINICAL HISTORY: E04.1 single thyroid nodule. Follow up thyroid nodules. GLAND SIZE: Right Lobe: 4.4 x 1.6 x 1.1 cm Overall Parenchyma: homogenous Left Lobe: 4.6 x 1.9 x 1.2 cm Overall Parenchyma: homogeneous Isthmus Thickness: 0.3 cm NODULES RIGHT: # of nodules measured on right: 2 1. 0.6 X 0.7 x 0.5 cm, mid medial, Prior size: 0.7 x 0.5 x 0.5 cm TIRADS Score: 0 TIRADS Category 1: Benign Composition: Cystic or almost completely cystic (0 points). Recommendation: No FNA 2. 1.0 X 0.8 x 0.6 cm Prior size: No prior TIRADS Score: 2 TIRADS Category 2: Not Suspicious Composition: Mixed cystic and solid (1 point). Echogenicity: Hyperechoic or isoechoic (1 point). Shape: Wider than tall (0 points). Margin: Smooth (0 points). Echogenic foci: None or large comet-tail artifacts (0 points) Recommendation: No FNA LEFT: # of nodules measured on left: 3 1. 1.4 X 1.1 x 1.0 cm, upper mid, Prior size: 2.2 x 1.6 x 1.7 cm TIRADS Score: 0 TIRADS Category 1: Benign Composition: Cystic or almost completely cystic (0 points). Recommendation: No FNA 2. 1.1 X 0.8 x 0.7 cm, lower mid, Prior size: 1.0 x 1.1 x 0.9 cm TIRADS Score: 4 TIRADS Category 4: Moderately Suspicious Composition: Solid or almost completely solid (2 points). Echogenicity: Hypoechoic (2 points). Shape: Wider than tall (0 points). Margin: Smooth (0 points). Echogenic foci: None or large comet-tail artifacts (0 points) Recommendation: If >1.5cm: FNA; If >1cm: Follow up at 1,2, 3,5 years 3. 1.3 X 0.9 x 0.6 cm, lower medial Prior size: 1.1 x 0.6 x 1.1 cm TIRADS Score: 3 TIRADS Category 3: Mildly Suspicious Composition: Solid or almost completely solid (2 points). Echogenicity: Hyperechoic or isoechoic (1 point). Shape: Wider than tall (0 points). Margin: Smooth (0 points). Echogenic foci: None or large comet-tail artifacts (0 points) Recommendation: If >2.5cm: FNA; If >1.5cm: Follow up at 1,3,5 years ISTHMUS: # of nodules measured in the isthmus: 1 Bilateral neck scanned, no evidence of lymphadenopathy. IMPRESSION: Bilateral thyroid nodules that meet criteria for follow-up.
== END | disposition home or self-care (01) ==
LOC: RADUSWWP 06:56
PROVIDERS: ATTEND Otolaryngology
DX: E04.2 Nontoxic multinodular goiter (principal)
CPT/HCPCS: 76536

== ENCOUNTER → 2022-12-16 | Outpatient (CLI) | payer OTHER ==
--- NOTE | 2022-12-16 20:05 | US ---
EXAMINATION TYPE: US thyroid st tissue head/neck DATE OF EXAM: 12/16/2022 COMPARISON: NONE CLINICAL INDICATION: Female, 62 years old with history of E04.2 NONTOXIC MULTINODULAR GOITER; thy nod ules GLAND SIZE: Right Lobe: 5.0 x 1.2 x 1.4 cm Overall Parenchyma: homogeneous Left Lobe: 5.7 x 1.2 x 1.8 cm Overall Parenchyma: homogeneous Isthmus Thickness: .4 cm NODULES RIGHT: # of nodules measured on right: 1 1. 1.3 X 0.6 x 1.2 cm, upper , Prior size: 0.6 x 0.5 x 0.6 cm TIRADS Score: 0 TIRADS Category 1: Composition: Cystic or almost completely cystic (0 points). Recommendation: No FNA LEFT: # of nodules measured on left: Multiple measured largest 2. 1. 0.8 X 0.8 x 0.7 cm, lower lateral, Prior size: 1.1 x 0.7 x 0.8 cm TIRADS Score: 4 TIRADS Category 4: Composition: Mixed cystic and solid (1 point). Echogenicity: Hypoechoic (2 points). Shape: Wider than tall (0 points). Margin: Smooth (0 points). Echogenic foci: Macrocalcifications (1 point) Recommendation: If >1.5cm: FNA; If >1cm: Follow up at 1,2, 3,5 years 2. 1.4 X 0.8 x 0.7 cm, lower mid Prior size: 1.4 x 1.0 x 1.1 cm TIRADS Score: 0 TIRADS Category 1: Composition: Cystic or almost completely cystic (0 points). Recommendation: No FNA ISTHMUS: # of nodules measured in the isthmus: 0 Bilateral neck scanned, no evidence of lymphadenopathy. IMPRESSION: Thyroid nodules as described above. 2017 ACR TI-RADS LEVEL: TR-RADS 4 - Moderately Suspicious: Follow if > 1 cm, FNA if > 1.5 cm *Highest TI-RADS level nodule reported
== END | disposition home or self-care (01) ==
LOC: RADUSWWP 16:55
PROVIDERS: ATTEND Otolaryngology
DX: E04.2 Nontoxic multinodular goiter (principal)
CPT/HCPCS: 76536

== ENCOUNTER → 2023-09-04 | Outpatient (CLI) | payer OTHER ==
--- NOTE | 2023-09-04 15:18 | BD ---
EXAMINATION TYPE: Axial Bone Density DATE OF EXAM: 09/04/2023 CLINICAL HISTORY: 63 years old Female. ICD-10 CODE: N95.1,M85.88 Height: 164lbs Weight: 62" FRAX RISK QUESTIONS: Alcohol (3 or more units per day): No Family History (Parent hip fracture): No Glucocorticoids (More than 3mos): No (Ex: prednisone, prednisolone, methylprednisolone, dexamethasone, and hydrocortisone). History of Fracture in Adulthood: No Secondary Osteoporosis: 1. Type 1 Diabetes: No 2. Hyperthyroidism: No 3. Menopause before 45: No 4. Malnutrition: No 5. Chronic liver disease: No Rheumatoid Arthritis: No Current Tobacco Use: No RISK FACTORS HISTORY OF: Hip Fracture (Right/Left): No Spine Fracture: No History of Wrist Fracture: No Surgery to Spine/Hip(right/left)/Wrist (right/left): No MEDICATIONS: Thyroid Medications: No Osteoporosis Medications: No EXAM MEASUREMENTS: Bone mineral densitometry was performed using the Genetics Squared System. Bone mineral density as measured about the Lumbar spine is: ----- L1-L4(G/cm2): 1.309 T Score Values are as follows: ----- L1: -0.4 ----- L2: -0.4 ----- L3: 2.1 ----- L4: 2.2 ----- L1-L4: 1.1 Z Score Values are as follows:N/A Bone mineral density has: Unable to compare Lumbar scan to the 2011 scan. Bone mineral density about the R hip (g/cm2): 0.875 Bone mineral density about the L hip (g/cm2): 0.908 T Score values are as follows: -----R Neck: -0.9 -----L Neck: -0.9 -----R Total: -1.0 -----L Total: -0.8 Z Score values are as follows: N/A Bone mineral density has: decreased -8.8% since study of: 12/09/2010 FRAX%s: The graph provided illustrates a 3.8% chance for a major osteoporotic fx and a 0.2% chance fo r the hips probability for fx in 10 years time. IMPRESSION: Normal (Values between +1 and -1 indicate normal bone mass). Consider repeating this study in 5 year s or sooner if there is some new clinical indication. NOTE: T-SCORE=SD OF THE YOUNG ADULT MEAN.
--- NOTE | 2023-09-05 08:39 | MM ---
Reason for Exam: Screening (asymptomatic). Last screening mammogram was performed 12 month(s) ago. Patient History: Menarche at age 17. First Full-Term at age 25. Postmenopausal. Patient has history of breast feeding. Risk Values: Maria Luisa 5 year model risk: 1.2%. NCI Lifetime model risk: 5.8%. Prior Study Comparison: 07/01/2021 Right MG work up mamm w CAD RT, [facility]. 02/16/2022 Right MG diagnostic mammo RT w CAD, [facility]. 09/01/2022 Bilateral MG screening mammo w CAD, [facility]. Tissue Density: There are scattered areas of fibroglandular density. Findings: Analyzed By CAD. There is no suspicious group of microcalcifications or new suspicious mass in either breast. Overall Assessment: Benign, BI-RAD 2 Management: Screening Mammogram of both breasts in 1 year. . Patient should continue monthly self-breast exams. A clinical breast exam by your physician is recommended on an annual basis. This exam should not preclude additional follow-up of suspicious palpable abnormalities. Note on Maria Luisa scores and lifetime risk: 1. A Maria Luisa score greater than 3% is considered moderate risk. If this is the case, consider specialist referral to assess eligibility for a risk reducing agent. 2. If overall lifetime risk for the development of breast cancer is 20% or higher, the patient may qualify for future screening with alternating mammogram and breast MRI. Electronically signed and approved by: Grady Bettencourt M.D. Radiologis
== END | disposition home or self-care (01) ==
LOC: RADMAMWWP 06:57
PROVIDERS: ATTEND Internal Medicine
DX: Z12.31 Encounter for screening mammogram for malignant neoplasm of breast (principal); M85.88 Other specified disorders of bone density and structure, other site; R92.323 Mammographic fibroglandular density, bilateral breasts; Z78.0 Asymptomatic menopausal state
CPT/HCPCS: 77063; 77067; 77080

== ENCOUNTER 2024-05-07 08:53 | Day surgery (SDC) | payer OTHER ==
[2024-05-07 09:45] VITALS: TEMP 98.1
[2024-05-07] MEDS: IV FLUID CONTINUATION 1,000 ML IV ONE ×2 (09:53→10:13)
[2024-05-07] MEDS: LACTATED RINGERS 1,000 ML IV SCH (09:53)
[2024-05-07] MEDS ORDERED: LIDOCAINE 1% INJ 10MG/ML (20 ML MDV) ONE (09:56)
[2024-05-07] MEDS ORDERED: PROPOFOL 10 MG/ML 20 ML VIAL IV ONE (09:56)
--- NOTE | 2024-05-07 09:58 | P.GSHP ---
History of Present Illness H&P Date: 05/07/24 Chief Complaint: Colon cancer screening 63-year-old female here for colonoscopy. Last colonoscopy 10 to 12 years ago. That study was normal. No bowel complaints. No family history of colon cancer. Past Medical History Past Medical History: Hyperlipidemia, Hypertension, Osteoarthritis (OA), Thyroid Disorder Additional Past Medical History / Comment(s): thyroid nodules History of Any Multi-Drug Resistant Organisms: None Reported Past Surgical History: Joint Replacement Additional Past Surgical History / Comment(s): lithotripsy, bx of thyroid,surgery to left wrist. Rt. TKA, colonoscopy. Past Anesthesia/Blood Transfusion Reactions: No Reported Reaction Smoking Status: Never smoker - Past Family History Sister(s) Family Medical History: Cancer Additional Family Medical History / Comment(s): Pancreatic Cancer Medications and Allergies Home Medications Medication Instructions Recorded Confirmed Type Amlodipine-Benazepril 5 - 10 mg PO HS 11/17/23 05/07/24 History Simvastatin 10 mg PO HS 05/03/24 05/07/24 History Allergies Allergy/AdvReac Type Severity Reaction Status Date / Time No Known Allergies Allergy Verified 05/07/24 09:41 Surgical - Exam Vital Signs Temp Pulse Resp BP Pulse Ox 98.1 F 75 16 135/72 98 05/07/24 09:39 05/07/24 09:39 05/07/24 09:39 05/07/24 09:39 05/07/24 09:39 Physical exam: General: Well-developed, well-nourished HEENT: Normocephalic, sclerae nonicteric Abdomen: Nontender, nondistended Extremities: No edema Neuro: Alert and oriented Assessment and Plan (1) Colon cancer screening Narrative/Plan: Will proceed with colonoscopy at this time. Current Visit: Yes Status: Acute Code(s): Z12.11 - ENCOUNTER FOR SCREENING FOR MALIGNANT NEOPLASM OF COLON SNOMED Code(s): 739641710
--- NOTE | 2024-05-07 10:08 | P.PCN ---
Date of Procedure: 05/07/24 Procedure(s) Performed: PREOPERATIVE DIAGNOSIS: Colon cancer screening POSTOPERATIVE DIAGNOSIS: Diverticulosis PROCEDURE: Colonoscopy ANESTHESIA: MAC SURGEON: Johnny Garcia M.D. SPECIMENS: None ENDOSCOPIC PROCEDURE: The patient was placed on the endoscopy table in the left decubitus position. The Olympus colonoscope was inserted into the anus and passed under direct visualization to the base of the cecum. The appendiceal orifice was visualized. From that point the scope was slowly withdrawn inspe cting all surfaces carefully. There were no neoplastic inflammatory or polypoid lesions throughout the cecum, ascending, transverse, descending, sigmoid and rectum. There was moderate scattered diverticulosis noted. Digital rectal examination was normal. The patient was taken to the recovery room in stable condition per anesthesia guidelines. RECOMMENDATIONS: Resume diet. Repeat colonoscopy 10 years.
[2024-05-07 10:34] VITALS: BP 126/78; PULSE 63; RESP 16
== END 2024-05-07 10:53 | disposition home or self-care (01) ==
LOC: ORWHC2ENDO 08:53
PROVIDERS: ATTEND Surgery
DX: Z12.11 Encounter for screening for malignant neoplasm of colon (principal); K57.30 Diverticulosis of large intestine without perforation or abscess without bleeding; E78.5 Hyperlipidemia, unspecified; I10 Essential (primary) hypertension; M19.90 Unspecified osteoarthritis, unspecified site; E07.9 Disorder of thyroid, unspecified; Z79.899 Other long term (current) drug therapy; Z96.659 Presence of unspecified artificial knee joint
CPT/HCPCS: 45378; J2003; J2704